=== PATIENT | female | born 1980 | race Caucasian/White ===

== ENCOUNTER 2019-03-01 21:34 | Emergency (ER) | payer BC ==
[~2019-03-01] VITALS: Ht 162.6 cm; Wt 52.2 kg
--- NOTE | 2019-03-01 21:47 | ED.ADGEN ---
Adult General Chief Complaint Chief Complaint ".. I think.. I am having another kidney stone.. I know I ve had one before.. and maybe more.. but one confirmed... pain is on my Rt. flank... I did go to [facility] .. they started me on Bactrim for possible UTI*.. .. HPI HPI Patient is a 38 year old female who presents with above hx and complaints of right flank pain radiating to her groin. Pain was severe on the right side of her upper back. Pain was relieved for a couple hours but came back at a level of her pelvis. Pain now is in her right groin area. Pain is similar to prior renal stone presentation. Patient has suspect previous renal stones with similar pain when she gets dehydrated. Did previously passed a stone but it was lost in the stool. No recent travel. No specific ill contacts. Did recently get dehydrated during a moving into a new home . Was seen at [facility] and started on Bactrim for possible urinary tract infection. No history of immunosuppression. Patient is normally healthy. No history of vaginal discharge. No concerns for STD. Has had a stool today. No recent injury. Review of Systems Review of Systems Constitutional: Denies fever or chills [] Eyes: Denies change in visual acuity, redness, or eye pain [] HENT: Denies nasal congestion or sore throat [] Respiratory: Denies cough or shortness of breath [] Cardiovascular: No additional information not addressed in HPI [] GI: Denies abdominal pain, nausea, vomiting, bloody stools or diarrhea [] : Some complaints of dysuria and hematuria [] Musculoskeletal: Complaints of right flank back pain Integument: Denies rash or skin lesions [] Neurologic: Denies headache, focal weakness or sensory changes [] Endocrine: Denies polyuria or polydipsia [] All other systems were reviewed and found to be within normal limits, except as documented in this note. Family History Family History Noncontributory Current Medications Current Medications Current Medications Medications (Trade) Dose Ordered Sig/Jeff Start Time Stop Time Status Last Admin Dose Admin Famotidine (Pepcid Vial) 20 mg 1X ONCE 03/01/19 22:15 03/01/19 22:44 DC 03/01/19 22:30 20 MG Ketorolac Tromethamine (Toradol 15mg Vial) 15 mg STK-MED ONCE 03/01/19 22:17 03/01/19 22:18 DC Ketorolac Tromethamine (Toradol 30mg Vial) 30 mg 1X ONCE 03/01/19 22:15 03/01/19 22:44 DC 03/01/19 22:15 30 MG Lactated Ringer's 1,000 ml @ 1,000 mls/hr Q1H 03/01/19 22:08 03/01/19 23:07 DC 03/01/19 22:30 1,000 MLS/HR Levofloxacin (Levaquin) 500 mg STK-MED ONCE 03/02/19 00:00 03/02/19 00:10 DC Ondansetron HCl (Zofran) 8 mg 1X ONCE 03/01/19 22:15 03/01/19 22:44 DC 03/01/19 22:30 8 MG Allergies Allergies Allergies Coded Allergies Type Severity Reaction Last Updated Verified Penicillins Allergy Unknown 03/01/19 Yes Physical Exam Physical Exam Constitutional: Well developed, well nourished, moderately acute distress, non- toxic appearance. [] HENT: Normocephalic, atraumatic, bilateral external ears normal, oropharynx mo ist, no oral exudates, nose normal. [] Eyes: PERRLA, EOMI, conjunctiva normal, no discharge. [] Neck: Normal range of motion, no tenderness, supple, no stridor. [] Cardiovascular:Heart rate regular rhythm, no murmur [] Lungs & Thorax: Bilateral breath sounds clear to auscultation [] Abdomen: Bowel sounds decreased, soft, nontender tenderness, no masses, no pulsatile masses. [] Patient declined pelvic exam at this time. Skin: Warm, dry, no erythema, no rash. [] Tattoos Back: No tenderness, marked CVA tenderness on the right. Exacerbated by percussion causes pain to radiate to groin Extremities: No tenderness, no cyanosis, no clubbing, ROM intact, no edema. [] Neurologic: Alert and oriented X 3, normal motor function, normal sensory function, no focal deficits noted. [] Psychologic: Affect anxious, judgement normal, mood normal. [] Current Patient Data Vital Signs Vital Signs Date Time Temp Pulse Resp B/P (MAP) Pulse Ox O2 Delivery O2 Flow Rate FiO2 03/01/19 21:48 98.2 75 18 99 Room Air Lab Results Laboratory Tests Test 03/01/19 21:40 03/01/19 22:30 Urine Collection Type Unknown Urine Color Sachi Urine Clarity Cloudy Urine pH 7.5 Urine Specific [place] 1.015 Urine Protein 100 mg/dl (NEG-TRACE) Urine Glucose (UA) Neg mg/dL (NEG) Urine Ketones (Stick) Neg mg/dL (NEG) Urine Blood Large (NEG) Urine Nitrite Neg (NEG) Urine Bilirubin Neg (NEG) Urine Urobilinogen Dipstick 0.2 mg/dL (0.2 mg/dL) Urine Leukocyte Esterase Large (NEG) Urine RBC 11-20 /HPF (0-2) Urine WBC Tntc /HPF (0-4) Urine Squamous Epithelial Cells Mod /LPF Urine Bacteria Mod /HPF (0-FEW) Urine Hyaline Casts Occ /HPF Urine Opiates Screen Neg (NEG) Urine Methadone Screen Neg (NEG) Urine Barbiturates Neg (NEG) Urine Phencyclidine Screen Neg (NEG) Urine Amphetamine/Methamphetamine Neg (NEG) Urine Benzodiazepines Screen Neg (NEG) Urine Cocaine Screen Neg (NEG) Urine Cannabinoids Screen Neg (NEG) Urine Ethyl Alcohol Neg (NEG) White Blood Count 10.0 x10^3/uL (4.0-11.0) Red Blood Count 4.17 x10^6/uL (3.50-5.40) Hemoglobin 13.0 g/dL (12.0-15.5) Hematocrit 38.5 % (36.0-47.0) Mean Corpuscular Volume 92 fL (79-100) Mean Corpuscular Hemoglobin 31 pg (25-35) Mean Corpuscular Hemoglobin Concent 34 g/dL (31-37) Red Cell Distribution Width 14.1 % (11.5-14.5) Platelet Count 221 x10^3/uL (140-400) Neutrophils (%) (Auto) 64 % (31-73) Lymphocytes (%) (Auto) 26 % (24-48) Monocytes (%) (Auto) 6 % (0-9) Eosinophils (%) (Auto) 3 % (0-3) Basophils (%) (Auto) 1 % (0-3) Neutrophils # (Auto) 6.4 x10^3uL (1.8-7.7) Lymphocytes # (Auto) 2.6 x10^3/uL (1.0-4.8) Monocytes # (Auto) 0.6 x10^3/uL (0.0-1.1) Eosinophils # (Auto) 0.3 x10^3/uL (0.0-0.7) Basophils # (Auto) 0.0 x10^3/uL (0.0-0.2) Prothrombin Time 9.5 SEC (9.4-11.4) Prothrombin Time INR 0.9 (0.9-1.1) PTT 24 SEC (23-33) Sodium Level 140 mmol/L (136-145) Potassium Level 4.1 mmol/L (3.5-5.1) Chloride Level 104 mmol/L (98-107) Carbon Dioxide Level 26 mmol/L (21-32) Anion Gap 10 (6-14) Blood Urea Nitrogen 13 mg/dL (7-20) Creatinine 1.2 mg/dL (0.6-1.0) H Estimated GFR (Cockcroft-Gault) 50.3 Glucose Level 124 mg/dL (70-99) H Calcium Level 9.0 mg/dL (8.5-10.1) Total Bilirubin 0.3 mg/dL (0.2-1.0) Direct Bilirubin 0.1 mg/dL (0.0-0.2) Aspartate Amino Transferase (AST) 14 U/L (15-37) L Alanine Aminotransferase (ALT) 19 U/L (14-59) Alkaline Phosphatase 80 U/L (46-116) Total Protein 7.4 g/dL (6.4-8.2) Albumin 3.8 g/dL (3.4-5.0) Amylase Level 39 U/L (25-115) Lipase 132 U/L (73-393) EKG EKG [] Radiology/Procedures Radiology/Procedures My interpretation of x-ray shows no acute cardiopulmonary findings. No free air in the diaphragm. Nonspecific bowel gas pattern. My interpretation of CT shows mild hydronephrosis on right. Does have findings of stones in the kidneys. Does have findings of stones in her bladder. Does appear to have a distal stone on the right. However radiology felt there was no hydronephrosis or obstructive stone.[] [address] [address] IMAGING REPORT Signed PATIENT: GLENN PHILIPPE ACCOUNT: [id number] : 1980 LOCATION: ER AGE: 38 SEX: F EXAM STATUS: REG ER ORD. PHYSICIAN: JEYSON BOBO MD REASON: Right flank and back pain. Hx kidney stones PROCEDURE: CT ABDOMEN PELVIS WO CONTRAST EXAM: CT Abdomen and Pelvis without IV contrast CLINICAL HISTORY: Right flank and back pain. History of kidney stones. COMPARISON: none TECHNIQUE: Helical CT of the abdomen and pelvis without intravenous contrast. Axial, coronal and sagittal reformatted images were generated. PQRS compliance statement - One or more of the following individualized dose reduction techniques were utilized for this study: 1. Automated exposure control 2. Adjustment of the mA and/or kV according to patient size 3. Use of iterative reconstruction technique FINDINGS: Lack of intravenous contrast limits evaluation of solid organs, vasculature, and lymph nodes. Lower chest: Lung bases are clear. Abdomen and Pelvis: No focal liver lesion. Spleen is unremarkable. Adrenal glands are normal. Pancreas is unremarkable. Gallbladder is normal. No biliary ductal dilatation. Multiple bilateral nonobstructing renal calculi are seen. For example a sales representative womens health left upper pole renal calculus measures up to 5 mm. No definite ureteral or bladder calculi. No hydronephrosis or hydroureter. Mild bladder wall thickening, may be seen with cystitis. Moderate colonic stool content is seen. No small or large bowel dilatation. No evidence for bowel obstruction. No abdominal or pelvic ascites. No abdominal pelvic lymphadenopathy. Appendix is normal. Aorta is normal in caliber. Small fat-containing periumbilical hernia. Bones: Osseous structures are grossly unremarkable. IMPRESSION: 1. Multiple bilateral nonobstructing renal calculi. No definite ureteral or bladder calculi. 2. No hydronephrosis or hydroureter. 3. Moderate colonic stool content is seen. This can be correlated for possible constipation. 4. Mild bladder wall thickening, nonspecific but may be seen with cystitis Electronically signed by: Beka Montano MD (03/01/2019 11:13 PM) [id number] DICTATED AND SIGNED BY: BEKA MONTANO MD DATE: 03/01/19 1976 CC: JEYSON BOBO MD; PCP,NO ~ Course & Med Decision Making Course & Med Decision Making Pertinent Labs and Imaging studies reviewed. (See chart for details) Presentation and symptoms are consistent with a renal stone. Patient does have findings of urinary tract infection would continue the Bactrim as previously directed. Take Tylenol and ibuprofen for pain. Take Zofran 8 mg up 4 times a day for nausea and vomiting. For marked pain take Vicoprofen up to 4 times a day. If a stone is passed save it for evaluation. Follow-up primary care. Follow-up with urology. Return if any concerns. Must have re exam if no improvement. [] Final Impression Final Impression 1. Rt. Renal colic[] 2. Hematuria and UTI 3. Mild constipation Dragon Disclaimer Dragon Disclaimer This electronic medical record was generated, in whole or in part, using a voice recognition dictation system. Discharge Summary Visit Information Final Diagnosis Problems Medical Problems: (1) Renal colic on right side Status: Acute (2) Urinary tract bacterial infections Status: Acute Brief Hospital Course Allergies Allergies Coded Allergies Type Severity Reaction Last Updated Verified Penicillins Allergy Unknown 03/01/19 Yes Vital Signs Vital Signs Date Time Temp Pulse Resp B/P (MAP) Pulse Ox O2 Delivery O2 Flow Rate FiO2 03/01/19 21:48 98.2 75 18 99 Room Air Lab Results Laboratory Tests Test 03/01/19 21:40 03/01/19 22:30 Urine Collection Type Unknown Urine Color Sachi Urine Clarity Cloudy Urine pH 7.5 Urine Specific [place] 1.015 Urine Protein 100 mg/dl (NEG-TRACE) Urine Glucose (UA) Neg mg/dL (NEG) Urine Ketones (Stick) Neg mg/dL (NEG) Urine Blood Large (NEG) Urine Nitrite Neg (NEG) Urine Bilirubin Neg (NEG) Urine Urobilinogen Dipstick 0.2 mg/dL (0.2 mg/dL) Urine Leukocyte Esterase Large (NEG) Urine RBC 11-20 /HPF (0-2) Urine WBC Tntc /HPF (0-4) Urine Squamous Epithelial Cells Mod /LPF Urine Bacteria Mod /HPF (0-FEW) Urine Hyaline Casts Occ /HPF Urine Opiates Screen Neg (NEG) Urine Methadone Screen Neg (NEG) Urine Barbiturates Neg (NEG) Urine Phencyclidine Screen Neg (NEG) Urine Amphetamine/Methamphetamine Neg (NEG) Urine Benzodiazepines Screen Neg (NEG) Urine Cocaine Screen Neg (NEG) Urine Cannabinoids Screen Neg (NEG) Urine Ethyl Alcohol Neg (NEG) White Blood Count 10.0 x10^3/uL (4.0-11.0) Red Blood Count 4.17 x10^6/uL (3.50-5.40) Hemoglobin 13.0 g/dL (12.0-15.5) Hematocrit 38.5 % (36.0-47.0) Mean Corpuscular Volume 92 fL (79-100) Mean Corpuscular Hemoglobin 31 pg (25-35) Mean Corpuscular Hemoglobin Concent 34 g/dL (31-37) Red Cell Distribution Width 14.1 % (11.5-14.5) Platelet Count 221 x10^3/uL (140-400) Neutrophils (%) (Auto) 64 % (31-73) Lymphocytes (%) (Auto) 26 % (24-48) Monocytes (%) (Auto) 6 % (0-9) Eosinophils (%) (Auto) 3 % (0-3) Basophils (%) (Auto) 1 % (0-3) Neutrophils # (Auto) 6.4 x10^3uL (1.8-7.7) Lymphocytes # (Auto) 2.6 x10^3/uL (1.0-4.8) Monocytes # (Auto) 0.6 x10^3/uL (0.0-1.1) Eosinophils # (Auto) 0.3 x10^3/uL (0.0-0.7) Basophils # (Auto) 0.0 x10^3/uL (0.0-0.2) Prothrombin Time 9.5 SEC (9.4-11.4) Prothromb Time International Ratio 0.9 (0.9-1.1) Activated Partial Thromboplast Time 24 SEC (23-33) Sodium Level 140 mmol/L (136-145) Potassium Level 4.1 mmol/L (3.5-5.1) Chloride Level 104 mmol/L (98-107) Carbon Dioxide Level 26 mmol/L (21-32) Anion Gap 10 (6-14) Blood Urea Nitrogen 13 mg/dL (7-20) Creatinine 1.2 mg/dL (0.6-1.0) Estimated GFR (Cockcroft-Gault) 50.3 Glucose Level 124 mg/dL (70-99) Calcium Level 9.0 mg/dL (8.5-10.1) Total Bilirubin 0.3 mg/dL (0.2-1.0) Direct Bilirubin 0.1 mg/dL (0.0-0.2) Aspartate Amino Transf (AST/SGOT) 14 U/L (15-37) Alanine Aminotransferase (ALT/SGPT) 19 U/L (14-59) Alkaline Phosphatase 80 U/L (46-116) Total Protein 7.4 g/dL (6.4-8.2) Albumin 3.8 g/dL (3.4-5.0) Amylase Level 39 U/L (25-115) Lipase 132 U/L (73-393) Brief Hospital Course Ms. Philippe is a 38 old female who presented with right renal colic. Discharge Information Condition at Discharge: Improved, Stable Disposition/Orders: D/C to Home Dischare Medications Current Medications Lactated Ringer's 1,000 ml @ 1,000 mls/hr Q1H IV Last administered on 03/01/19at 22:30; Admin Dose 1,000 MLS/HR; Start 03/01/19 at 22:08; Stop 03/01/19 at 23:07; Status DC Ondansetron HCl (Zofran) 8 mg 1X ONCE IV Last administered on 03/01/19at 22:30; Admin Dose 8 MG; Start 03/01/19 at 22:15; Stop 03/01/19 at 22:44; Status DC Famotidine (Pepcid Vial) 20 mg 1X ONCE IVP Last administered on 03/01/19at 22:30; Admin Dose 20 MG; Start 03/01/19 at 22:15; Stop 03/01/19 at 22:44; Status DC Ketorolac Tromethamine (Toradol 30mg Vial) 30 mg 1X ONCE IV Last administered on 03/01/19at 22:15; Admin Dose 30 MG; Start 03/01/19 at 22:15; Stop 03/01/19 at 22:44; Status DC Ketorolac Tromethamine (Toradol 15mg Vial) 15 mg STK-MED ONCE .ROUTE ; Start 03/01/19 at 22:17; Stop 03/01/19 at 22:18; Status DC Levofloxacin (Levaquin) 500 mg 1X ONCE PO Last administered on 03/02/19at 00:04; Admin Dose 500 MG; Start 03/02/19 at 00:00; Stop 03/02/19 at 00:10; Status DC Levofloxacin (Levaquin) 500 mg STK-MED ONCE .ROUTE ; Start 03/02/19 at 00:00; Stop 03/02/19 at 00:10; Status DC Active Scripts Active Levaquin (Levofloxacin) 500 Mg Tablet 500 Mg PO DAILY 5 Days Zofran (Ondansetron Hcl) 8 Mg Tablet 8 Mg PO QIDPRN PRN Hydrocodone-Ibuprofen 7.5-200 (Hydrocodone/Ibuprofen) 1 Each Tablet 1 Tab PO PRN Q6HRS PRN Dragon Disclaimer This chart was dictated in whole or in part using Voice Recognition software in a busy, high-work load, and often noisy Emergency Department environment. It may contain unintended and wholly unrecognized errors or omissions. JEYSON BOBO MD Mar 01, 2019 21:47
[2019-03-01 21:48] VITALS: BP 138/77
[2019-03-01] MEDS ORDERED: IV RINGERS SOLUTION,LACTATED 1,000 ML IV SCH (22:08)
[2019-03-01] MEDS ORDERED: FAMOTIDINE 20 MG/2 ML VIAL IVP ONE (22:15)
[2019-03-01] MEDS ORDERED: KETOROLAC 30 MG/ML VIAL. IV ONE (22:15)
[2019-03-01] MEDS ORDERED: ONDANSETRON PF 4 MG/2 ML VIAL. IV ONE (22:15)
[2019-03-01] MEDS ORDERED: KETOROLAC 15 MG/ML VIAL. ONE (22:17)
[2019-03-01 22:24] LABS: BACTERIA,URINE MOD /HPF (0-FEW); BILIRUBIN,URINE NEG (NEG); CLARITY,URINE CLOUDY; COLOR,URINE AMBER; GLUCOSE,URINE NEG (NEG); HYALINE CASTS, URINE OCC /HPF; NITRITE,URINE NEG (NEG); SQUAMOUS EPITHELIAL CELL,UR MOD /LPF; UROBILINOGEN,URINE 0.2 mg/dL (0.2 mg/dL); WBC,URINE TNTC /HPF (0-4)
[2019-03-01 22:26] LABS: AMPHETAMINE/METHAMPHETAMINE NEG (NEG); BARBITURATES NEG (NEG); BENZODIAZEPINES NEG (NEG); CANNABINOIDS NEG (NEG); COCAINE NEG (NEG); METHADONE NEG (NEG); OPIATES NEG (NEG); PHENCYCLIDINE NEG (NEG)
[2019-03-01 22:44] LABS: BASO % 1 % (0-3); EOS # 0.3 x10^3/uL (0.0-0.7); EOS % 3 % (0-3); HEMATOCRIT 38.5 % (36.0-47.0); LYMPH # 2.6 x10^3/uL (1.0-4.8); LYMPH % 26 % (24-48); MEAN CORPUSCULAR HEMOGLOBIN 31 pg (25-35); MEAN CORPUSCULAR HGB CONC 34 g/dL (31-37); MEAN CORPUSCULAR VOLUME 92 fL (79-100); MONO # 0.6 x10^3/uL (0.0-1.1); MONO % 6 % (0-9); NEUT # 6.4 x10^3uL (1.8-7.7); NEUT % 64 % (31-73); PLATELET COUNT 221 x10^3/uL (140-400); RED BLOOD COUNT 4.17 x10^6/uL (3.50-5.40); RED CELL DISTRIBUTION WIDTH 14.1 % (11.5-14.5)
[2019-03-01 22:55] LABS: ALBUMIN 3.8 g/dL (3.4-5.0); CREATININE 1.2 mg/dL (0.6-1.0); DIRECT BILIRUBIN 0.1 mg/dL (0.0-0.2); GFR 50.3; POTASSIUM 4.1 mmol/L (3.5-5.1); TOTAL BILIRUBIN 0.3 mg/dL (0.2-1.0); TOTAL PROTEIN 7.4 g/dL (6.4-8.2)
--- NOTE | 2019-03-01 23:16 | RAD ---
EXAM: CT Abdomen and Pelvis without IV contrast CLINICAL HISTORY: Right flank and back pain. History of kidney stones. COMPARISON: none TECHNIQUE: Helical CT of the abdomen and pelvis without intravenous contrast. Axial, coronal and sagittal reformatted images were generated. PQRS compliance statement - One or more of the following individualized dose reduction techniques were utilized for this study: 1. Automated exposure control 2. Adjustment of the mA and/or kV according to patient size 3. Use of iterative reconstruction technique FINDINGS: Lack of intravenous contrast limits evaluation of solid organs, vasculature, and lymph nodes. Lower chest: Lung bases are clear. Abdomen and Pelvis: No focal liver lesion. Spleen is unremarkable. Adrenal glands are normal. Pancreas is unremarkable. Gallbladder is normal. No biliary ductal dilatation. Multiple bilateral nonobstructing renal calculi are seen. For example a lifeline representatives left upper pole renal calculus measures up to 5 mm. No definite ureteral or bladder calculi. No hydronephrosis or hydroureter. Mild bladder wall thickening, may be seen with cystitis. Moderate colonic stool content is seen. No small or large bowel dilatation. No evidence for bowel obstruction. No abdominal or pelvic ascites. No abdominal pelvic lymphadenopathy. Appendix is normal. Aorta is normal in caliber. Small fat-containing periumbilical hernia. Bones: Osseous structures are grossly unremarkable. IMPRESSION: 1. Multiple bilateral nonobstructing renal calculi. No definite ureteral or bladder calculi. 2. No hydronephrosis or hydroureter. 3. Moderate colonic stool content is seen. This can be correlated for possible constipation. 4. Mild bladder wall thickening, nonspecific but may be seen with cystitis Electronically signed by: Beka Nichole MD (03/01/2019 11:13 PM) [id number]
[2019-03-01] MEDS ORDERED: ONDA8TAB9 PO (23:57)
[2019-03-01] MEDS ORDERED: LEVO500T59 PO (23:57)
[2019-03-01] MEDS ORDERED: HYDR-1179 PO (23:57)
[2019-03-02] MEDS ORDERED: levoFLOXacin 500 MG TABLET ONE
[2019-03-02] MEDS ORDERED: levoFLOXacin 500 MG TABLET PO ONE
--- NOTE | 2019-03-02 08:06 | RAD ---
EXAM: Two view abdomen with one view chest HISTORY: Right flank and back pain. COMPARISON: CT 03/01/2019. FINDINGS: A frontal view of the chest and supine/upright views of the abdomen are obtained. The lungs are expanded to the 11th posterior interspaces. There are no confluent infiltrates. There is no pneumothorax or pleural effusion. The heart is not enlarged. Multiple small bilateral renal calculi measure up to 4 mm at the left upper pole and <3 mm in the right interpolar region. Calcifications bilaterally in the pelvis are consistent with phleboliths. There is no pneumoperitoneum. There are no distended small bowel loops or significant air-fluid levels. There is gas distally. Stool throughout the colon is consistent with constipation. IMPRESSION: 1. Hyperinflation. Correlate to exclude air trapping. No confluent infiltrates. 2. Bilateral renal calculi measure up to [address] for more information. 3. Correlate for constipation. Electronically signed by: Candice Amaya MD (03/02/2019 8:03 AM) [facility]
== END 2019-03-02 00:05 | disposition home or self-care (01) ==
LOC: ER 21:34
DX: N20.0 Calculus of kidney (principal); K59.00 Constipation, unspecified; E86.0 Dehydration; B97.89 Other viral agents as the cause of diseases classified elsewhere; R31.9 Hematuria, unspecified; Z88.0 Allergy status to penicillin
CPT/HCPCS: 36415; 74022; 74176; 80048; 80076; 80307; 81001; 81025; 82150; 83690; 85025; 85610; 85730; 87086; 96361; 96374; 96375; 99285; J1885; J2405; J3490; J7120